=== PATIENT | female | born 2000 | race Asian ===

== ENCOUNTER 2019-07-02 15:16 | Emergency (ER) | payer OTHER ==
[2019-07-02 16:30] LABS: HCG Pregnancy < 0.60 mIU/mL
[2019-07-02 16:39] LABS: ALT 16 U/L (7-52); AST 12 U/L (13-39); Albumin 4.3 g/dL (3.2-5.2); Albumin/Globulin Ratio 1.2 (1-3); Alkaline Phosphatase 118 U/L (34-104); Anion Gap 8 mmol/L (2-11); BUN/Creatinine Ratio 17.1 (8-20); Blood Urea Nitrogen 12 mg/dL (6-24); CO2 Carbon Dioxide 28 mmol/L (22-32); Calcium 9.7 mg/dL (8.6-10.3); Chloride 100 mmol/L (101-111); EGFR African American 130.4 (>60); EGFR Non-African American 107.8 (>60); Globulin 3.6 g/dL (2-4); Glucose 91 mg/dL (70-100); Potassium 3.9 mmol/L (3.5-5.0); Sodium 136 mmol/L (135-145); Total Protein 7.9 g/dL (6.4-8.9)
[2019-07-02 16:47] LABS: Hematocrit 40 % (35-47); Hemoglobin 12.4 g/dL (12.0-16.0); Mean Corpuscular HGB Conc 31 g/dL (31-36); Mean Corpuscular Hemoglobin 20 pg (27-31); Mean Corpuscular Volume 65 fL (80-97); Mean Platelet Volume 9.1 fL (7.4-10.4); Platelet Count 316 10^3/uL (150-450); Red Blood Count 6.17 10^6 /uL (3.70-4.87); Red Cell Distribution Width 17 % (10-15); White Blood Count 11.3 10^3/uL (3.5-10.8)
[2019-07-02] MEDS ORDERED: diPHENhydraMINE PO* 50 MG PO ONE (18:03)
[2019-07-02] MEDS ORDERED: Metoclopramide TAB* 10 MG PO ONE (18:04)
[2019-07-02] MEDS ORDERED: Ketorolac TAB * 10 MG TAB PO ONE (18:05)
--- NOTE | 2019-07-02 18:05 | ED ---
Headache - HPI Summary HPI Summary: Patient complains of headache, dizziness, nausea 4 days. Symptoms Worse with positional change of head. Denies fever, cough, sore throat, CP, SOB, V/D, abdominal pain, change in urine, change in BM. Denies medical history. - History Of Current Complaint Chief Complaint: EDHeadache Stated Complaint: HEADACHE/NAUSEA/DIZZINESS PER PT Time Seen by Provider: 07/02/19 17:44 Hx Obtained From: Patient Onset/Duration: Gradual Onset, Started days ago Initially Headache Was: Moderate Currently Pain Is: Moderate Timing: Intermittent, Lasting: Character: Throbbing Location of Headache: Diffuse Aggravating Factor: Position Change Allevating Factors: Rest Associated Signs And Symptoms: Dizziness, Nausea - Allergies/Home Medications Allergies/Adverse Reactions: Allergies Allergy/AdvReac Type Severity Reaction Status Date / Time adhesive tape Allergy Rash Verified 07/02/19 18:49 mint Allergy Dizziness Verified 07/02/19 18:49 PMH/Surg Hx/FS Hx/Imm Hx Endocrine/Hematology History: Denies: Hx Anticoagulant Therapy Cardiovascular History: Denies: Hx Pacemaker/ICD History: Denies: Hx Dialysis Sensory History: Denies: Hx Eye Prosthesis Opthamlomology History: Denies: Hx Legally Blind EENT History: Denies: Hx Deafness Neurological History: Denies: Hx Dementia Infectious Disease History: No Infectious Disease History: Denies: Traveled Outside the [place] in Last 30 Days - Family History Known Family History: Positive: Non-Contributory - Social History Alcohol Use: Occasionally Hx Substance Use: No Hx Tobacco Use: No Review of Systems Constitutional: Negative Eyes: Negative ENT: Negative Cardiovascular: Negative Respiratory: Negative Positive: Nausea Genitourinary: Negative Musculoskeletal: Negative Skin: Negative Positive: Headache Psychological: Normal All Other Systems Reviewed And Are Negative: Yes Physical Exam - Summary Physical Exam Summary: Neuro exam normal Triage Information Reviewed: Yes Vital Signs On Initial Exam: Initial Vitals Temp Pulse Resp BP Pulse Ox 99.2 F 81 18 132/79 99 07/02/19 15:21 07/02/19 15:21 07/02/19 15:21 07/02/19 15:21 07/02/19 15:21 Vital Signs Reviewed: Yes Appearance: Positive: Well-Appearing Skin: Positive: Warm Head/Face: Positive: Normal Head/Face Inspection Eyes: Positive: Normal ENT: Positive: Normal ENT inspection Neck: Positive: Supple Respiratory/Lung Sounds: Positive: Clear to Auscultation Cardiovascular: Positive: Normal Abdomen Description: Positive: Nontender Musculoskeletal: Positive: Normal Neurological: Positive: Normal Psychiatric: Positive: Normal AVPU Assessment: Alert - Selin Coma Scale Best Eye Response: 4 - Spontaneous Best Motor Response: 6 - Obeys Commands Best Verbal Response: 5 - Oriented Coma Scale Total: 15 Procedures - Sedation Patient Received Moderate/Deep Sedation with Procedure: No Diagnostics - Vital Signs Vital Signs Temp Pulse Resp BP Pulse Ox 07/02/19 15:21 99.2 F 81 18 132/79 99 - Laboratory Lab Results: Lab Results 07/02/19 07/02/19 Range/Units 15:51 15:54 WBC 11.3 H (3.5-10.8) 10^3/uL RBC 6.17 H (3.70-4.87) 10^6 /uL Hgb 12.4 (12.0-16.0) g/dL Hct 40 (35-47) % MCV 65 L (80-97) fL MCH 20 L (27-31) pg MCHC 31 (31-36) g/dL RDW 17 H (10-15) % Plt Count 316 (150-450) 10^3/uL MPV 9.1 (7.4-10.4) fL Sodium 136 (135-145) mmol/L Potassium 3.9 (3.5-5.0) mmol/L Chloride 100 L (101-111) mmol/L Carbon Dioxide 28 (22-32) mmol/L Anion Gap 8 (2-11) mmol/L BUN 12 (6-24) mg/dL Creatinine 0.70 (0.51-0.95) mg/dL Est GFR ( Amer) 130.4 (>60) Est GFR (Non-Af Amer) 107.8 (>60) BUN/Creatinine Ratio 17.1 (8-20) Glucose 91 (70-100) mg/dL Calcium 9.7 (8.6-10.3) mg/dL Total Bilirubin 0.40 (0.2-1.0) mg/dL AST 12 L (13-39) U/L ALT 16 (7-52) U/L Alkaline Phosphatase 118 H (34-104) U/L Total Protein 7.9 (6.4-8.9) g/dL Albumin 4.3 (3.2-5.2) g/dL Globulin 3.6 (2-4) g/dL Albumin/Globulin Ratio 1.2 (1-3) Beta HCG, Quant < 0.60 mIU/mL Result Diagrams: 07/02/19 15:51 07/02/19 15:54 Lab Statement: Any lab studies that have been ordered have been reviewed, and results considered in the medical decision making process. Headache Course/Dx - Course Course Of Treatment: Patient complains of headache, dizziness, nausea 4 days. Symptoms Worse with positional change of head. Denies fever, cough, sore throat , CP, SOB, V/D, abdominal pain, change in urine, change in BM. Denies medical history. Vital signs within normal limits. WBC 11.3. Labs otherwise unremarkable. Headache and dizziness improved with migraine cocktail. Rx for meclizine. - Diagnoses Provider Diagnoses: Headache, Dizziness Discharge ED - Sign-Out/Discharge Documenting (check all that apply): Patient Departure - Discharge Plan Condition: Stable Disposition: HOME Prescriptions: Meclizine HCl 25 mg PO TID 4 Days #12 tab.chew Patient Education Materials: Vertigo (ED), Acute Headache (ED), Dizziness (ED) Referrals: No Primary Care Phys,NOPCP [Primary Care Provider] - Additional Instructions: Alternate ibuprofen 600 mg with Tylenol 650 mg every 3 hours for headache pain if needed. Take meclizine up to 3 times a day for dizziness. Follow-up with primary care. Return to the ED for any worsening symptoms. - Billing Disposition and Condition Condition: STABLE Disposition: Home
[2019-07-02] MEDS ORDERED: Acetaminophen TAB* 325 MG PO ONE (19:48)
[2019-07-02 21:02] VITALS: BP 115/83
== END 2019-07-02 21:00 | disposition home or self-care (01) ==
LOC: ED 15:16
DX: R51 Headache (principal); R42 Dizziness and giddiness
CPT/HCPCS: 36415; 80053; 84702; 85027; 93005; 99282; A9270-GY